=== PATIENT | female | born 1995 | race Caucasian/White ===

== ENCOUNTER 2020-05-17 06:59 | Emergency (ER) | payer OTHER, SELFPAY ==
--- NOTE | ~2020-05-17 | XR_ITS ---
EXAMINATION: XR CHEST CLINICAL INFORMATION: The wording of inspiration COMPARISON: None TECHNIQUE: Frontal view of the chest was obtained. FINDINGS: No significant abnormality is noted involving the heart, lungs, mediastinum, bony thorax or soft tissues. XR/XR chest 1V IMPRESSION: Unremarkable chest examination.
[2020-05-17 08:12] VITALS: BP 146/91; PULSE 89; RESP 18; TEMP 36.6; O2SAT 98; BMI 24.7
--- NOTE | 2020-05-17 08:52 | ED_ITS ---
HPI - General Adult General Chief complaint: General Medical Stated complaint: TOOTH PAIN SOB Time Seen by Provider: 05/17/20 08:39 Source: patient Mode of arrival: ambulatory Limitations: no limitations History of Present Illness HPI narrative: Patient comes to emergency room complaining of dental pain in the right maxillary side. Patient states she has history of multiple chipped tooth including on the left side. Patient started taking amoxicillin yesterday night, which she had left over from a previous dental infection. Patient denies fever chills. Patient also complaining of substernal chest pain was only with deep inspirations, not related to exertion. At this time, no chest pain. Patient denies coughing, no upper respiratory symptoms. This has been ongoing for the last 2 days. Related Data Previous Rx's Medication Instructions Recorded amoxicillin 875 mg PO BID #20 tab 05/17/20 ketorolac 10 mg PO TID PRN 3 Days #10 tab 05/17/20 Allergies Allergy/AdvReac Type Severity Reaction Status Date / Time No Known Allergies Allergy Unverified 11/22/19 16:38 [No Known Allergies*] Review of Systems Review of Systems: Constitutional : No Weight loss, No Fever, No Chills, No Night Sweats, No Fatigue, No Malaise ENT/Mouth : No Hearing loss, No Ear Pain, No Nasal Congestion, No Sinus Pain, No Hoarseness, No sore throat, No Rhinorrhea, No Swallowing Difficulty, complaining of dental pain, maxillary right side Eyes: No Eye Pain, No Swelling, No Redness, No Foreign Body, No Discharge, No Vision Changes Cardiovascular : No Chest Pain, No SOB, No Dyspnea on Exertion, No Orthopnea, No Edema, No Palpitations Respiratory : No Cough, No Sputum, No Wheezing, No Smoke Exposure, No Dyspnea, complaining of substernal chest pain with deep inspirations Gastrointestinal : No Nausea, No Vomiting, No Diarrhea, No Constipation, No abdominal Pain, No Hematochezia, No Melena Genitourinary : no irregular bleeding, No Dysuria, No Urinary Frequency, No Hematuria, No Urinary Incontinence, No Urgency, No Flank Pain, No Urinary Flow Changes, No Hesitancy Musculoskeletal : No joint pain, No Myalgias, No Joint Swelling Skin : No Skin Lesions, No rash Neuro : No Weakness, No Numbness, No Paresthesias, No Loss of Consciousness, No Dizziness, No Headache Psych : No Anxiety/Panic, No Depression, No SI/HI/AH/VH, No Social Issues, Heme/Lymph: No Bruising, No Bleeding,No Lymphadenopathy Endocrine : No Polyuria, No Polydipsia, No Temperature Intolerance PMF Past Medical History Medical History Heart murmur Social History Social History Alcohol intake: never Smoking Status: Never smoker Use of substances other than those prescribed or required for medical reasons: Yes Substance Use Type: Marijuana Substance Use Frequency: Occasionally Advance Directives: No Advance Directives Information Provided: No Physical Exam Vital Signs: Vital Signs: Last Vital Signs Temp 98 F 05/17/20 08:12 Pulse 65 05/17/20 10:07 Resp 18 05/17/20 10:07 BP 117/67 05/17/20 10:07 Pulse Ox 99 05/17/20 10:07 Body Mass Index 24.7 Appearance: Alert. Oriented X3. No acute distress. Eyes: Pupils equal, round and reactive to light. ENT: Pharynx normal. Missing teeth on bilateral maxillary sides, gums look slightly erythematous, no obvious abscess formation Neck: Normal inspection. Neck supple. No lymph nodes noted. No crepitus CVS: Normal heart rate and rhythm. Pulses normal. Normal S1 and S2 Respiratory: No respiratory distress. Breath sounds normal. No Wheezing. No rales Abdomen: Soft and nontender. No rigidity. No distention. good BS x4 Skin: Skin warm and dry. Normal skin color. Normal skin turgor. Extremities: No lower extremity edema. No lower extremity edema. No Lacerations. No Rash Neuro: Oriented X 3. No motor deficit. No sensory deficit. Moving all extermities. No slurred speech. Course Course Course Narrative: I discussed with the patient that her COVID test was negative, chest x-ray is within normal limits. EKG normal other than bradycardia. Patient states that after Toradol shot, she feels much better, no longer having pleuritic chest pain and dental pain greatly decreased. Patient is aware that she needs to follow up with her dentist. Medical Decision Making Lab Data Labs: Lab Results 05/17/20 05/17/20 Range/Units 09:13 09:13 Urine Test NEGATIVE (NEGATIVE) Coronavirus (PCR) NEGATIVE (Negative) Influenza Type A (PCR) NEGATIVE (Negative) Influenza Type B (PCR) NEGATIVE (Negative) RSV RNA Qual (PCR) NEGATIVE (Negative) Imaging Data Chest x-ray: Radiologist's impression: FINDINGS: No significant abnormality is noted involving the heart, lungs, mediastinum, bony thorax or soft tissues. XR/XR chest 1V IMPRESSION: Unremarkable chest examination. ECG Data Attestation: I personally reviewed and interpreted this ECG as follows: (Sinus rhythm, heart rate 56, no ST segment depression in the patient, no T-wave i nversions) Discharge Plan Discharge Clinical Impression: Pleurisy Dental implant pain Qualifiers: Encounter type: initial encounter Qualified Code(s): T85.848A - Pain due to other internal prosthetic devices, implants and grafts, initial encounter Patient Disposition: Home, Self-Care Instructions: Pleurisy (ED), Toothache (ED) Additional Instructions: Do not take ibuprofen/Motrin when you are taking Toradol. You may only use Tylenol. Please follow-up with your dentist. Please follow-up with your primary care physician tomorrow. If you have any worsening or new symptoms, please return to the emergency room or call 911 Prescriptions: New amoxicillin 875 mg tablet 875 mg PO BID Qty: 20 RF: 0 ketorolac 10 mg tablet 10 mg PO TID PRN (Reason: pain) 3 Days Qty: 10 RF: 0
[2020-05-17] MEDS: Ketorolac Tromethamine 60 MG/2 ML VIAL IM (09:04)
[2020-05-17 09:26] LABS: UPreg QC Valid YES; Urine Pregnancy NEGATIVE (NEGATIVE)
[2020-05-17 10:02] LABS: Influenza A PCR NEGATIVE (Negative); Influenza B PCR NEGATIVE (Negative); Resp Syncy Virus RNA Qual PCR NEGATIVE (Negative); SARS COV2 PCR INHOUSE NEGATIVE (Negative)
[2020-05-17 10:07] VITALS: BP 117/67; PULSE 65; RESP 18; O2SAT 99
--- NOTE | 2020-05-17 10:08 | PC.NURSE ---
Awaiting x-ray and covid results. PT reports that her pain has significantly improved since her Toradol injection.
--- NOTE | 2020-05-17 10:20 | ECG_ITS ---
Test Reason : CP Blood Pressure : / mmHG Vent. Rate : 056 BPM Atrial Rate : 056 BPM P-R Int : 146 ms QRS Dur : 088 ms QT Int : 430 ms P-R-T Axes : 032 126 064 degrees QTc Int : 414 ms Sinus bradycardia Right axis deviation Cannot rule out inferior infarct Abnormal ECG No previous ECGs available Referred By: Patrizia Gipson Electronically Signed By:Tom Balbuena
== END 2020-05-17 11:28 | disposition home or self-care (01) ==
PROVIDERS: Emergency Provider Emergency Medicine
DX: R09.1 Pleurisy (principal); K08.89 Other specified disorders of teeth and supporting structures; F12.90 Cannabis use, unspecified, uncomplicated; Z20.822 Contact with and (suspected) exposure to COVID-19; Z79.899 Other long term (current) drug therapy
CPT/HCPCS: 0241U; 36415; 71045; 81025; 93005; 96372; 99284; J1885